=== PATIENT | female | born 2000 | race Hispanic/Latino ===

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

== ENCOUNTER → 2020-01-02 16:55 | Outpatient (CLI) | payer OTHER, SELFPAY | PROVIDERS: Family Provider Pediatrics; PCP Pediatrics; Visit Provider Physician Assistant | DX: R30.0 Dysuria (principal) | CPT/HCPCS: 87077; 87086; 87186 ==

== ENCOUNTER → 2020-03-12 11:48 | Outpatient (CLI) | payer OTHER, SELFPAY ==
[2020-03-13 20:00] LABS: COVID19 Sendout Not Detected (Not Detect)
== END ==
PROVIDERS: Family Provider Pediatrics; PCP Pediatrics; Visit Provider Physician Assistant
DX: Z11.59 Encounter for screening for other viral diseases (principal)
CPT/HCPCS: 87635

== ENCOUNTER → 2020-05-28 12:20 | Outpatient (CLI) | payer OTHER, SELFPAY ==
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
== END ==
PROVIDERS: Family Provider Pediatrics; PCP Family Medicine; Referring Provider Physician Assistant; Visit Provider Physician Assistant
DX: M54.2 Cervicalgia (principal)
CPT/HCPCS: 72040

== ENCOUNTER → 2020-11-13 13:09 | Outpatient (CLI) | payer OTHER, SELFPAY ==
[2020-11-13] MEDS: COVID-19 VACC, Ad26(JANSSEN)/PF 0.5 ML IM (13:13)
== END ==
PROVIDERS: Family Provider Pediatrics; PCP Family Medicine; Visit Provider Internal Medicine
DX: Z23 Encounter for immunization (principal)
CPT/HCPCS: 0031A; 91303

== ENCOUNTER → 2022-04-14 07:55 | Outpatient (CLI) | payer OTHER, SELFPAY | PROVIDERS: Family Provider Pediatrics; PCP Family Medicine; Visit Provider Nurse Practitioner Family | DX: N39.0 Urinary tract infection, site not specified (principal) | CPT/HCPCS: 87086; 87210 ==

== ENCOUNTER → 2023-10-09 12:25 | Outpatient (CLI) | payer OTHER, SELFPAY ==
[2023-10-10 14:50] LABS: Candida species Negative (Negative); Gardnerella vaginalis Positive (Negative); Trichomoas vaginalis Negative (Negative)
== END ==
PROVIDERS: Family Provider Pediatrics; PCP Family Medicine; Visit Provider Physician Assistant Medical
DX: N89.8 Other specified noninflammatory disorders of vagina (principal)
CPT/HCPCS: 87480; 87510; 87660

== ENCOUNTER → 2023-10-21 07:24 | Outpatient (CLI) | payer OTHER, SELFPAY | PROVIDERS: Family Provider Pediatrics; PCP Family Medicine; Visit Provider Physician Assistant | DX: N94.9 Unspecified condition associated with female genital organs and menstrual cycle (principal) | CPT/HCPCS: 87210 ==

== ENCOUNTER → 2023-11-08 13:39 | Outpatient (CLI) | payer OTHER, SELFPAY | PROVIDERS: Family Provider Pediatrics; PCP Family Medicine; Visit Provider Obstetrics & Gynecology | DX: N89.8 Other specified noninflammatory disorders of vagina (principal) | CPT/HCPCS: 87480; 87510; 87660 ==